=== PATIENT | male | born 1990 | race American Indian/Alaskan Native ===

== ENCOUNTER 2019-10-25 09:23 | Emergency (ER) | payer MEDICAID ==
[2019-10-25 09:28] VITALS: BP 139/93
--- NOTE | 2019-10-25 09:34 | Emergency Department Report ---
Stated Complaint: BUMP ON BACK OF NECK Time Seen by Provider: 10/25/19 09:26 - HPI History of Present Illness: 29 y/o male comes in for a bump on the back of his neck times 2 days. No fever It is painful Took nothing for pain. - Exam Physical Exam: AxO times 3 Neck FROM Skin 2x2 cm lesion mild indurated MSE screening note: Focused history and physical exam performed. Due to findings the following was ordered: ED Disposition for MSE Condition: Stable
== END 2019-10-25 10:33 | disposition left against medical advice (07) ==
LOC: ED 09:23
DX: R22.1 Localized swelling, mass and lump, neck (principal)
CPT/HCPCS: 99281